=== PATIENT | female | born 1995 | race Caucasian/White ===

== ENCOUNTER 2021-08-31 10:55 | Emergency (ER) | payer OTHER ==
[~2021-08-31] VITALS: Ht 154.9 cm; Wt 63.5 kg
[2021-08-31 11:53] LABS: BASOPHIL 0.4 % (0-2); EOSINOPHIL 0.8 % (0-5); HCT 40.6 % (37.0-47.0); LYMPHOCYTE 27.2 % (15-48); MCH 28.2 pg (25.0-31.0); MCV 88.1 fL (78.0-100.0); MONOCYTE 6.8 % (0-12); MPV 11.5 fL (6.0-9.5); NEUTROPHIL 64.6 % (41-80); NRBC 0; PLT 274 K/uL (150-400); RBC 4.61 M/uL (4.20-5.40); WBC 8.4 K/uL (4.0-10.5)
[2021-08-31 12:14] LABS: ALBUMIN 3.6 g/dL (3.4-5.0); ALKALINE PHOSHATASE 73 U/L (46-116); ALT 20 U/L (14-59); AST 15 U/L (15-37); BILIRUBIN - TOTAL 0.3 mg/dL (0.2-1.0); BUN 10 mg/dL (7-18); BUN/CREAT RATIO (CALC) 13.2 RATIO; CHLORIDE 101 mmol/L (98-107); CO2 (BICARBONATE) 25 mmol/L (21-32); CREATININE 0.76 mg/dL (0.51-0.95); GLOBULIN (CALCULATION) 3.4 g/dL; GLUCOSE 87 mg/dL (74-106); POTASSIUM 3.5 mmol/L (3.5-5.1)
[2021-08-31] MEDS ORDERED: NAPROXEN500 MG PO (12:40)
[2021-08-31] MEDS ORDERED: ZPAK PO (12:40)
== END 2021-08-31 13:07 | disposition home or self-care (01) ==
LOC: FER 10:55
PROVIDERS: Emergency Medicine
DX: U07.1 COVID-19 (principal); J40 Bronchitis, not specified as acute or chronic; E87.1 Hypo-osmolality and hyponatremia; R07.81 Pleurodynia
CPT/HCPCS: 36415; 71045; 80053; 84484; 85025; 85379; J1885